=== PATIENT | female | born 1950 | race Caucasian/White ===

== ENCOUNTER 2018-06-11 22:29 | Inpatient (IN) ==
[2018-06-11] MEDS ORDERED: DUONEB 0.5 MG/3 MG NEB ONE (23:02)
[2018-06-11] MEDS ORDERED: SOLU-Medrol 125 MG VIAL IVP ONE (23:02)
[2018-06-11] MEDS ORDERED: DUONEB 0.5 MG/3 MG ONE (23:08)
--- NOTE | 2018-06-11 23:08 | DR.URIAD ---
HPI - Time Seen Time seen: 23:01 - PCP Primary Care Physician: MELO - Complaint Chief Complaint Doctors Comments: Patient states she has been having problems breathing for the past 2-3 weeks getting progressively worst. states she went to ther doctor last week and almost passed out and they are to do some more thest on her heart. states she has a concentrator at home and use 2 1/2 liters oxygen at home. States she has had a breathing treatment in the ambulance on the way to the hospital. She has been wheezing and having problems breathing and states she has been taking antibiotics for bad teeth for a while because she has not been strong enough to get her teeth pulled. She is still smoking at home about 1/2 pack daily as related by spouse. States she has a history or atrial fib and is taking aspirin. She denies problems with her hands or feet swelling. She denies nausea or vomiting. Chief Complaint:: [facility] DISPATCHED OUT TO PATIENT FOR DIFFICULTY BREATHING. EMS STATED THAT ON SCENE PATINET WAS 83% O2 ON ROOM DUONEB BREATHING TREATMENT GIVEN AND NASAL CANNULA APPLIED. PATIENT BROUGHT IN BY STRETCHER PATIENT ALERT AND ORINETED PATINET STATES THAT THE DIFFULCITY BREATHING HAS PROGRESSED THROUGH THE DAY. 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 negative: See HPI, Chest Pain, Edema, Palpitations, Syncope, Cyanosis, Skin Mottling, Other Gastrointestinal/Abdominal: No Symptoms Reported. negative: See HPI, Abdominal Pain, Constipation, Diarrhea, Nausea, Vomiting, Food Intolerance, Other Genitourinary: No Symptoms Reported Neurological: No Symptoms Reported Musculoskeletal: No Symptoms Reported Integumentary: No Symptoms Reported Hematologic/Lymphatic: No Symptoms Reported, See HPI Endocrine: No Symptoms Reported Psychiatric: No Symptoms Reported. negative: See HPI, Anxiety, Depression, Hallucinations, Excessive crying, Suicidal, Other PE - General Limitations: No Limitations General Appearance: Alert, In Distress (moderate) - Head Head Exam: Normal Inspection, Atraumatic, Normocephalic - Eyes Eye exam: Normal Appearance, PERRL, EOMI. negative: Scleral Icterus, Conjunctival Injection, Nystagmus, Miosis, Mydrasis, Periorbital Swelling, Periorbital Tenderness, Other - ENT ENT Exam: Normal Exam, Normal Oropharynx, Normal External Ear Exam, Mucous Membranes Moist, TM's Normal Bilaterally External Ear Exam: Normal External Inspection TM/Canal Exam: Bilateral Normal Nose Exam: Normal Nose Exam Nasal Speculum Exam: Bilateral Normal Mouth Exam: Normal Inspection. negative: Drooling, Trismus, Lip Swelling, Tongue Elevation, Tongue Swelling, Laceration, Other Throat Exam: Normal Inspection - Neck Neck Exam: Normal Inspection, Full ROM, Trachea Midline. negative: Tenderness, Meningismus, Lymphadenopathy, Thyromegaly, Other - Chest Chest Inspection: Normal Inspection, Symmetric Chest Wall Rise - Respiratory Respiratory Exam: Normal Lung Sounds Bilat, Prolonged Expiratory Phase Respiratory Exam: Bilateral Wheezing, Bilateral Decreased Breath Sounds, Left Rales - Cardiovascular Cardiovascular Exam: Regular Rate, Normal Rhythm, Normal Heart Sounds - Abdominal Exam Abdominal Exam: Normal Inspection, Normal Bowel Sounds, Soft, Tenderness (epigastric tenderness) Abdominal Tenderness: Epigastrium, Mild - Extremeties Extremities Exam: Normal Inspection, Full ROM, Normal Capillary Refill. negative: Tenderness, Edema, Joint Swelling, Calf Tenderness, Other - Back Back Exam: Normal Inspection, Full ROM. negative: Tenderness, (R) CVA Tenderness, (L) CVA Tenderness, Muscle Spasm, Paraspinal Tenderness, Vertebral Tenderness, Rashes, (R) Sciatic Notch Tenderness, (L) Sciatic Notch Tendern, (R) Straight Leg Raise, (L) Straight Leg Raise, Other - Neurologic Neurological Exam: Alert, Oriented X3, CN II-XII Intact, Reflexes Normal. negative: Normal Gait (gait not tested) - Psychiatric Psychiatric Exam: Normal Affect, Normal Mood. negative: Depressed, Agitated, Anxious, Flat Affect, Manic, Homicidal Ideation, Suicidal Ideation, Other - Skin Skin Exam: Warm, Dry, Intact, Normal Color - Vital Signs Vitals: Temperature 97.8 F Pulse Rate [Apical] 86 Pulse Rate 84 Respiratory Rate 27 Blood Pressure [Right Arm] 143/76 Blood Pressure 136/89 O2 Sat by Pulse Oximetry 95 Course - Consultation Called: 03:04 (Dr. Villaseñor contacted multiple times) - Education/Counseling Education/Counseling: Patient, Family Educated On: Treatment, Diagnosis ROR - Labs Reviewed Laboratory Results Reviewed?: Yes (All labs and x-ray results reviewed and disc ussed with patient) Result Diagrams: 06/11/18 22:49 06/11/18 22:49 - XRAY XRAY Interpreted by: Radiologist (Chest: Cardiomegaly with interstitial edema suggestin CHF) - EKG Rate: 104 Rhythm: Afib, PVCs Block: LBBB ST: Old, Ant, Infarct - Labs Reviewed Laboratory: WBC 14.6 X10^3/uL (3.6-10.0) H 06/11/18 22:49 RBC 4.08 X10^6/uL (3.5-5.4) 06/11/18 22:49 Hgb 12.4 g/dL (12.0-16.0) 06/11/18 22:49 Hct 38.3 % (36.0-47.0) 06/11/18 22:49 MCV 93.8 fL (80.0-100.0) 06/11/18 22:49 MCH 30.3 pg (27.0-34.0) 06/11/18 22:49 MCHC 32.3 g/dL (33.0-35.0) L 06/11/18 22:49 RDW 14.1 % (11.6-16.5) 06/11/18 22:49 Plt Count 391 X10^3/uL (150.0-450.0) 06/11/18 22:49 MPV 9.0 fL (7.4-11.0) 06/11/18 22:49 Neut % (Auto) 82.7 % (42.0-75.0) H 06/11/18 22:49 Lymph % (Auto) 13.2 % (21.0-51.0) L 06/11/18 22:49 [place] % (Auto) 3.7 % (0.0-13.0) 06/11/18 22:49 Eos % (Auto) 0.1 % (0.9-2.9) L 06/11/18 22:49 Baso % (Auto) 0.3 % (0.2-1.0) 06/11/18 22:49 Neut # (Auto) 12.1 x10^3/uL (2.2-4.8) H 06/11/18 22:49 Lymph # (Auto) 1.9 X10^3/uL (1.3-2.9) 06/11/18 22:49 [place] # (Auto) 0.5 x10^3/uL (0.3-0.8) 06/11/18 22:49 Eos # (Auto) 0.0 x10^3/uL (0.0-0.2) 06/11/18 22:49 Baso # (Auto) 0.0 X10^3/uL (0.0-0.1) 06/11/18 22:49 Absolute Nucleated RBC 0.0 /100WBC 06/11/18 22:49 INR Target Range - 06/11/18 22:49 INR 1.11 (0.8-1.3) 06/11/18 22:49 APTT 31.0 SECONDS (22.9-36.5) 06/11/18 22:49 PTT Comment - 06/11/18 22:49 Sodium 140 mmol/L (136-145) 06/11/18 22:49 Corrected Sodium 141 mmol/L (136-145) 06/11/18 22:49 Potassium 4.2 mmol/L (3.5-5.1) 06/11/18 22:49 Chloride 106 mmol/L (98-107) 06/11/18 22:49 Carbon Dioxide 19.8 mmol/L (21-32) L 06/11/18 22:49 BUN 16 mg/dL (7-18) 06/11/18 22:49 Creatinine 1.42 mg/dL (0.55-1.02) H 06/11/18 22:49 Est GFR (MDRD) Af Amer 48 (>60) L 06/11/18 22:49 Est GFR (MDRD) Non-Af 39 (>60) L 06/11/18 22:49 Glucose 129 mg/dL (65-99) H 06/11/18 22:49 Calcium 9.4 mg/dL (8.5-10.1) 06/11/18 22:49 Corrected Calcium TNP 06/11/18 22:49 Magnesium 1.9 mg/dL (1.7-2.9) 06/11/18 22:49 Total Bilirubin 0.40 mg/dL (0.2-1.0) 06/11/18 22:49 AST 12 Units/L (15-37) L 06/11/18 22:49 ALT 16 Units/L (12-78) 06/11/18 22:49 Alkaline Phosphatase 129 Units/L (46-116) H 06/11/18 22:49 Creatine Kinase 55 Units/L (26-192) 06/11/18 22:49 CK-MB (CK-2) 1.7 ng/mL (0-4.0) 06/11/18 22:49 CK/CKMB % Calc 3.1 % (<4) 06/11/18 22:49 Troponin I < 0.02 ng/mL (0-1.5) 06/11/18 22:49 B-Natriuretic Peptide 732 pg/mL (0-79) H* 06/11/18 22:49 Total Protein 7.6 g/dL (6.4-8.2) 06/11/18 22:49 Albumin 3.7 g/dL (3.4-5.0) 06/11/18 22:49 Globulin 3.9 g/dL (2.5-4.5) 06/11/18 22:49 Albumin/Globulin Ratio 0.9 Ratio (1.1-2.1) L 06/11/18 22:49 - Diagnosis Discharge Problem: Respiratory distress, COPD with acute exacerbation, Hyperglycemia, Hypoxemia Congestive heart failure (CHF) Qualifiers: Heart failure chronicity: acute on chronic Atrial fibrillation Qualifiers: Atrial fibrillation type: unspecified Qualified Code(s): I48.91 - Unspecified atrial fibrillation Pulmonary edema Qualifiers: Chronicity: acute Qualified Code(s): J81.0 - Acute pulmonary edema Chronic kidney disease (CKD) Qualifiers: Chronic kidney disease stage: stage 3 (moderate) Qualified Code(s): N18.3 - Chronic kidney disease, stage 3 (moderate) - Discharge Plan Disposition: ADMITTED INPATIENT Condition: Stable - Follow ups/Referrals Follow ups/Referrals: MARITA ALEJO [Primary Care Provider] - 3 days - Instructions
[2018-06-11] MEDS ORDERED: SOLU-Medrol 125 MG VIAL ONE (23:13)
[2018-06-11 23:17] LABS: BASOPHILS % (AUTO) 0.3 % (0.2-1.0); EOSINOPHILS % (AUTO) 0.1 % (0.9-2.9); HEMATOCRIT 38.3 % (36.0-47.0); HEMOGLOBIN 12.4 g/dL (12.0-16.0); LYMPHOCYTES # (AUTO) 1.9 X10^3/uL (1.3-2.9); LYMPHOCYTES % (AUTO) 13.2 % (21.0-51.0); MEAN CORPUSCULAR HEMOGLOBIN 30.3 pg (27.0-34.0); MEAN CORPUSCULAR HGB CONC 32.3 g/dL (33.0-35.0); MEAN CORPUSCULAR VOLUME 93.8 fL (80.0-100.0); MONOCYTES # (AUTO) 0.5 x10^3/uL (0.3-0.8); MONOCYTES % (AUTO) 3.7 % (0.0-13.0); NEUTROPHILS # (AUTO) 12.1 x10^3/uL (2.2-4.8); NEUTROPHILS % (AUTO) 82.7 % (42.0-75.0); PLATELET COUNT 391 X10^3/uL (150.0-450.0); RED BLOOD COUNT 4.08 X10^6/uL (3.5-5.4); RED CELL DISTRIBUTION WIDTH 14.1 % (11.6-16.5); WHITE BLOOD COUNT 14.6 X10^3/uL (3.6-10.0)
[2018-06-11 23:28] LABS: BLOOD UREA NITROGEN 16 mg/dL (7-18); CALCIUM 9.4 mg/dL (8.5-10.1); CARBON DIOXIDE 19.8 mmol/L (21-32); CHLORIDE 106 mmol/L (98-107); COR NA(FOR HYPERGLY) 141 mmol/L (136-145); CREATININE 1.42 mg/dL (0.55-1.02); SODIUM 140 mmol/L (136-145); TROPONIN I < 0.02 ng/mL (0-1.5); eGFR NON BLACK RACES 39 (>60)
[2018-06-11 23:32] LABS: ALANINE AMINOTRANSFERASE 16 Units/L (12-78); ALBUMIN 3.7 g/dL (3.4-5.0); ALKALINE PHOSPHATASE 129 Units/L (46-116); ASPARTATE AMINO TRANSFERASE 12 Units/L (15-37); CKMB % 3.1 % (<4); CREATINE KINASE 55 Units/L (26-192); CREATINE KINASE MB 1.7 ng/mL (0-4.0); MAGNESIUM 1.9 mg/dL (1.7-2.9); TOTAL PROTEIN 7.6 g/dL (6.4-8.2)
[2018-06-11 23:39] LABS: B-TYPE NATRIURETIC PEPTIDE 732 pg/mL (0-79)
[2018-06-12] MEDS ORDERED: LASIX IVP STA (00:55)
[2018-06-12] MEDS ORDERED: LASIX ONE (01:03)
--- NOTE | 2018-06-12 01:03 | RAD ---
Chest, 1 view Indication: Chest pain, difficulty breathing Comparison: 11/28/2011 Findings: Cardiac silhouette is mildly enlarged. There are basilar predominant interstitial opacities of both lungs, with Shavon B-lines. No significant pleural effusion. Chronic changes of COPD are noted. Impression: Cardiomegaly with interstitial edema suggesting CHF. COPD. Reported By:
[2018-06-12] MEDS ORDERED: ROCEPHIN VIAL 1 GRAM IVP ONE (02:57)
[2018-06-12] MEDS ORDERED: HumuLIN R SC PRN (03:12)
[2018-06-12] MEDS ORDERED: ROCEPHIN VIAL 1 GRAM ONE (03:21)
[2018-06-12 04:08] LABS: CKMB % 3.3 % (<4); CREATINE KINASE MB 1.7 ng/mL (0-4.0); TROPONIN I 0.02 ng/mL (0-1.5)
[2018-06-12 04:26] LABS: CHOL/HDL RATIO 3.7 (0.0-5.0)
[2018-06-12 04:27] LABS: ALANINE AMINOTRANSFERASE 13 Units/L (12-78); ALBUMIN 3.4 g/dL (3.4-5.0); ALKALINE PHOSPHATASE 121 Units/L (46-116); ASPARTATE AMINO TRANSFERASE 10 Units/L (15-37); BLOOD UREA NITROGEN 17 mg/dL (7-18); CARBON DIOXIDE 19.2 mmol/L (21-32); CHLORIDE 107 mmol/L (98-107); COR NA(FOR HYPERGLY) 143 mmol/L (136-145); CREATININE 1.28 mg/dL (0.55-1.02); SODIUM 142 mmol/L (136-145); TOTAL PROTEIN 6.5 g/dL (6.4-8.2); eGFR NON BLACK RACES 44 (>60)
[2018-06-12 04:43] LABS: BASOPHILS % (AUTO) 0.3 % (0.2-1.0); HEMATOCRIT 35.3 % (36.0-47.0); HEMOGLOBIN 11.5 g/dL (12.0-16.0); LYMPHOCYTES # (AUTO) 0.6 X10^3/uL (1.3-2.9); LYMPHOCYTES % (AUTO) 6.5 % (21.0-51.0); MEAN CORPUSCULAR HEMOGLOBIN 30.3 pg (27.0-34.0); MEAN CORPUSCULAR HGB CONC 32.5 g/dL (33.0-35.0); MEAN CORPUSCULAR VOLUME 93.2 fL (80.0-100.0); MEAN PLATELET VOLUME 9.3 fL (7.4-11.0); MONOCYTES # (AUTO) 0.1 x10^3/uL (0.3-0.8); MONOCYTES % (AUTO) 1.5 % (0.0-13.0); NEUTROPHILS # (AUTO) 8.8 x10^3/uL (2.2-4.8); NEUTROPHILS % (AUTO) 91.7 % (42.0-75.0); PLATELET COUNT 305 X10^3/uL (150.0-450.0); RED BLOOD COUNT 3.79 X10^6/uL (3.5-5.4); RED CELL DISTRIBUTION WIDTH 13.9 % (11.6-16.5); WHITE BLOOD COUNT 9.6 X10^3/uL (3.6-10.0)
[2018-06-12 04:52] VITALS: BMI 26.0
[2018-06-12 04:54] LABS: BAND NEUTROPHILS % 5 % (0-10); PLATELET MORPHOLOGY COMMENT NORMAL (NORMAL)
[2018-06-12] MEDS ORDERED: DUONEB 0.5 MG/3 MG NEB SCH (06:00)
[2018-06-12] MEDS: PRAVACHOL PO SCH ×2 (07:14→21:11)
[2018-06-12] MEDS: COZAAR PO SCH (08:27)
[2018-06-12] MEDS: LOPRESSOR TAB 25 MG PO SCH ×3 (08:27→21:00)
[2018-06-12] MEDS: ALDACTONE TAB 25 MG PO SCH (08:27)
[2018-06-12] MEDS: LASIX IVP SCH ×2 (08:27→21:10)
[2018-06-12] MEDS ORDERED: TUSSIONEX PENNKINETIC SUSP PO PRN (08:39)
[2018-06-12] MEDS ORDERED: LANOXIN INJ IVP ONE (08:42)
[2018-06-12] MEDS ORDERED: LANOXIN INJ IVP SCH (09:00)
[2018-06-12] MEDS ORDERED: NS 100 ML IV 100 ML ONE (09:21)
[2018-06-12] MEDS ORDERED: CARDIZEM INJ 50 MG VIAL ONE (09:23)
[2018-06-12] MEDS ORDERED: CARDIZEM INJ 125 MG VIAL ONE (09:23)
[2018-06-12] MEDS ORDERED: PULMICORT NEB TX 0.5 MG ONE (09:27)
[2018-06-12] MEDS: BROVANA IN SCH ×2 (09:35→20:34)
[2018-06-12] MEDS: PULMICORT NEB TX 0.5 MG NEB SCH ×2 (09:37→20:25)
[2018-06-12] MEDS ORDERED: NS 1000 ML 1,000 ML ONE ×2 (09:44→09:48)
[2018-06-12 10:00] LABS: CKMB % 4.9 % (<4); CREATINE KINASE 47 Units/L (26-192); CREATINE KINASE MB 2.3 ng/mL (0-4.0); TROPONIN I < 0.02 ng/mL (0-1.5)
[2018-06-12] MEDS: CARDIZEM INJ 125 MG VIAL 125 MG in NS 100 ML IV 100 ML IV PRN ×2 (10:02→15:49)
[2018-06-12 10:29] LABS: BILIRUBIN,URINE NEGATIVE (NEGATIVE); BLOOD/HEMOGLOBIN,URINE NEGATIVE (NEGATIVE); GLUCOSE, URINE NEGATIVE (NEGATIVE); KETONES,URINE NEGATIVE (NEGATIVE); LEUKOCYTE ESTERASE ,URINE NEGATIVE (NEGATIVE); NITRITES,URINE NEGATIVE (NEGATIVE); PROTEIN,URINE NEGATIVE (NEGATIVE); UROBILINOGEN,URINE NORMAL (NORMAL)
[2018-06-12 10:41] LABS: APPEARANCE,URINE CLEAR (CLEAR); COLOR,URINE YELLOW (YELLOW)
[2018-06-12] MEDS: SOLU-Medrol 40 MG VIAL IVP SCH ×3 (11:30→21:44)
[2018-06-12] MEDS: TESSALON PERLES PO SCH ×3 (11:35→21:44)
[2018-06-12] MEDS: MUCINEX DM PO SCH ×2 (11:35→21:11)
[2018-06-12] MEDS: XOPENEX 1.25 MG/3 ML NEBULE NEB SCH ×2 (11:50→17:24)
[2018-06-12 16:00] LABS: CKMB % 3.6 % (<4); CREATINE KINASE 42 Units/L (26-192); CREATINE KINASE MB 1.5 ng/mL (0-4.0); TROPONIN I < 0.02 ng/mL (0-1.5)
[2018-06-12] MEDS ORDERED: LOPRESSOR INJ 5 MG AMP ONE ×4 (16:56→20:01)
[2018-06-12] MEDS: LOPRESSOR INJ 5 MG AMP IVP ONE ×4 (16:59→20:05)
[2018-06-12] MEDS: LOVENOX INJ 60 MG SYR SC SCH (20:10)
--- NOTE | 2018-06-12 20:38 | DR.H&P ---
H&P - History & Physical for Day of: H&P Date: 06/12/18 - Chief Complaint Chief Complaint: DIFFICULTY BREATHING - History of Present Illness History of Present Illness: IS A 67 YEAR OLD PATIENT OF WHO PRESENTED TO THE ER WITH COMPLAINTS OF DIFFICULTY BREATHING. WHEN EMS ARRIVED AND ASSESSED PATIENT, OXYGEN SATURATIONS WERE NOTED TO BE 83% ON ROOM AIR. DUONEB AND OXYGEN WERE APPLIED. SHE REPORTS USE OF AN OXYGEN CONCENTRATOR AT HOME. SHE STATED THAT SHE HAS BEEN WHEEZING FOR THE PAST TWO-THREE WEEKS. SHE REPORTED TAKING ANTIBIOTICS FOR THE PAST WEEK. MEDICAL HISTORY INCLUDES ATRIAL FIBRILLATION, COPD, CAD, DYSLIPIDEMIA, GERD, AND HTN. ON ARRIVAL, VITALS WERE 97.8-100-22-92%-136/89. LABS WERE OBTAINED. ABNORMAL LAB VALUES INCLUDE THE FOLLOWING: WBC 14.6, CARBON DIOXIDE 19.8, CREATININE 1.42, GLUCOSE 129, AST 12, ALK PHOS 129, BNP 732. A CHEST XRAY WAS OBTAINED AND REVEALED: Cardiomegaly with interstitial edema suggesting CHF. COPD. EKG REVEALED: ATRIAL FIBRILLATION WITH HR 104. SHE WAS GIVEN LOPRESSOR 5MG IV X 1, ROCEPHIN 1G IV X 1, LASIX 20MG IV X 1, SOLU-MEDROL 125MG IV X 1, AND A DUONEB IN THE ER. SHE REPORTED SLIGHT IMPROVEMENT. SHE WAS ADMITTED FOR FURTHER EVALUATION AND TREATMENT OF CONGESTIVE HEART FAILURE, COPD EXACERBATION, AND ATRIAL FIBRILLATION. ON MORNING ROUNDS, SHE WAS NOTED TO BE TACHYCARDIC WITH HR IN THE 130S. VERTICAL LATHE OPERATOR REVEALED ATRIAL FIBRILLATION. TODAY, WE WILL ADMINISTER DIGOXIN 500MCG IV X 1 DOSE, START SOLU-MEDROL 80MG IV Q8H, PULMICORT AND XOPENEX NEB TX, MUCINEX DM, TUSSIONEX, TESSALON PERLES, AND WE WILL START HER ON A CARDIZEM DRIP. OTHERWISE, WE PLAN TO FOLLOW UP WITH AM LABS AND CONTINUE TO MONITOR. - Past Medical History Past Medical History: Anxiety, Arthritis, COPD, Coronary Artery Disease, Depression, Dyslipidemia, GERD, Hypertension Additional Medical History: Hx Atrial Fibrillation, Fibromyalgia - Past Surgical History Surgical History: Hysterectomy - Family History Family Medical History: Cancer, [place], Hypertension - Social History Does patient currently use any type of tobacco product: Yes Have you used tobacco products in the last 12 months: Yes Type of Tobacco Use: Cigarettes How many years tobacco product used: 30 Does any household member use tobacco: Yes Alcohol Use: None Drug Use: None - Medications Home Medications: No Known Drug Allergies Allergy (Verified 06/11/18 22:30) CONTINUE taking the following medications albuterol sulfate [ProAir HFA] 1 puff INHALATION Q4-6H PRN 06/11/18 [History] alprazolam 0.25 mg PO BID PRN 06/11/18 [History] aspirin 81 mg PO QDAY 06/11/18 [History] diphenoxylate-atropine [Lomotil] 1 tab PO Q6H PRN 06/11/18 [History] gabapentin 300 mg PO QHS 06/11/18 [History] losartan 50 mg PO DAILY 06/11/18 [History] metoprolol tartrate 25 mg PO BID 06/11/18 [History] nifedipine 60 mg PO DAILY 06/11/18 [History] potassium chloride 10 meq PO DAILY 06/11/18 [History] pravastatin 40 mg PO QHS 06/11/18 [History] ropinirole 0.5 mg PO BID 06/11/18 [History] spironolactone 25 mg PO DAILY 06/11/18 [History] topiramate 100 mg PO BID 06/11/18 [History] tramadol 50 mg PO TID PRN 06/11/18 [History] venlafaxine 75 mg PO BID 06/11/18 [History] - Review of Systems Constitutional: No Symptoms Reported Eyes: No Symptoms Reported ENT: No Symptoms Reported Respiratory: See HPI, Cough, Shortness of Breath, SOB with Excertion, Wheezing Cardiovascular: No Symptoms Reported Gastrointestinal: No Symptoms Reported Genitourinary: No Symptoms Reported Musculoskeletal: No Symptoms Reported Skin: No Symptoms Reported Neurological: No Symptoms Reported - Physical Exam Vital Signs: Temperature 98.1 F Pulse Rate [Apical] 86 Pulse Rate 120 Respiratory Rate 23 Blood Pressure [Right Arm] 143/76 Blood Pressure 133/60 O2 Sat by Pulse Oximetry 95 Oriented: Normal Eyes: Normal Ear: Normal Nose: Normal Throat: Normal Respiratory: Wheezes Throughout Cardiovascular: Tachycardia, Irregular : Normal Auscultation: Bowel Sounds: Normal Palpation: Normal Tenderness: Normal Skin: Normal Musculoskeletal: Normal Psychiatric: Normal Mood Description: Calm Affect: Normal Speech Pattern: Clear - Assessment/Plan (1) COPD with acute exacerbation Status: Acute Plan: SOLU-MEDROL 80MG IV Q8H, RESPIRATORY TX, SUPPLEMENTAL OXYGEN, CONTINUE TO MONITOR (2) Congestive heart failure (CHF) Qualifiers: Heart failure chronicity: acute on chronic Status: Acute Plan: LASIX 20MG IV BID, RESPIRATORY TX, SUPPLEMENTAL OXYGEN, CONTINUE HOME MEDS, CONTINUE TO MONITOR (3) Atrial fibrillation Qualifiers: Atrial fibrillation type: unspecified Qualified Code(s): I48.91 - Unspecified atrial fibrillation Status: Acute Plan: DIGOXIN 500MCG IV X 1 DOSE, CARDIZEM DRIP, CONTINUE TO MONITOR (4) Respiratory distress Status: Acute - Allergies Allergies/Adverse Reactions: Allergies Allergy/AdvReac Type Severity Reaction Status Date / Time No Known Drug Allergies Allergy Verified 06/11/18 22:30
[2018-06-13] MEDS: CARDIZEM INJ 125 MG VIAL 125 MG in NS 100 ML IV 100 ML IV PRN (00:45)
[2018-06-13] MEDS: XOPENEX 1.25 MG/3 ML NEBULE NEB SCH ×3 (00:59→12:05)
[2018-06-13 05:17] LABS: BASOPHILS % (AUTO) 0.2 % (0.2-1.0); HEMATOCRIT 36.1 % (36.0-47.0); HEMOGLOBIN 11.6 g/dL (12.0-16.0); LYMPHOCYTES # (AUTO) 0.8 X10^3/uL (1.3-2.9); LYMPHOCYTES % (AUTO) 4.8 % (21.0-51.0); MEAN CORPUSCULAR HGB CONC 32.2 g/dL (33.0-35.0); MEAN CORPUSCULAR VOLUME 92.9 fL (80.0-100.0); MEAN PLATELET VOLUME 9.3 fL (7.4-11.0); MONOCYTES # (AUTO) 0.2 x10^3/uL (0.3-0.8); MONOCYTES % (AUTO) 1.3 % (0.0-13.0); NEUTROPHILS # (AUTO) 16.4 x10^3/uL (2.2-4.8); NEUTROPHILS % (AUTO) 93.7 % (42.0-75.0); PLATELET COUNT 346 X10^3/uL (150.0-450.0); RED BLOOD COUNT 3.88 X10^6/uL (3.5-5.4); RED CELL DISTRIBUTION WIDTH 14.1 % (11.6-16.5); WHITE BLOOD COUNT 17.5 X10^3/uL (3.6-10.0)
[2018-06-13 05:35] LABS: ALBUMIN 3.3 g/dL (3.4-5.0); CARBON DIOXIDE 22.1 mmol/L (21-32); COR CA(FOR HYPOALB) 9.6 mg/dL (8.5-10.1); CREATININE 1.34 mg/dL (0.55-1.02); TOTAL PROTEIN 6.8 g/dL (6.4-8.2)
[2018-06-13] MEDS: SOLU-Medrol 40 MG VIAL IVP SCH (05:49)
[2018-06-13] MEDS: TESSALON PERLES PO SCH (05:49)
--- NOTE | 2018-06-13 06:11 | RAD ---
HISTORY: Chest pain, difficulty breathing Study: Single view chest Comparison: 06/11/2018 Findings: There is right basilar opacity. Lungs are mildly hyperinflated with increased interstitial markings. The cardiac and mediastinal contours are within normal limits. The soft tissues are unremarkable. IMPRESSION: 1. Right basilar opacity, possibly representing pneumonia in the appropriate clinical setting. Continued follow-up recommended. Reported By:
[2018-06-13 06:18] LABS: BAND NEUTROPHILS % 3 % (0-10); PLATELET MORPHOLOGY COMMENT NORMAL (NORMAL)
[2018-06-13] MEDS: MUCINEX DM PO SCH (08:37)
[2018-06-13] MEDS: LOVENOX INJ 60 MG SYR SC SCH ×2 (08:37→10:21)
[2018-06-13] MEDS: COZAAR PO SCH (08:37)
[2018-06-13] MEDS: LASIX IVP SCH (08:37)
[2018-06-13] MEDS: ALDACTONE TAB 25 MG PO SCH (08:37)
[2018-06-13] MEDS: LOPRESSOR TAB 25 MG PO SCH (08:37)
[2018-06-13 09:00] LABS: ABG BASE EXCESS -2.9 mmol/L (-2.0-2.0); ABG HCO3 18.7 mmol/L (22-26)
[2018-06-13] MEDS ORDERED: LEVAQUIN PREMIX IV 750 MG 750 MG/150 ML BAG IV SCH (09:00)
[2018-06-13] MEDS: BROVANA IN SCH (09:27)
[2018-06-13] MEDS: PULMICORT NEB TX 0.5 MG NEB SCH (09:36)
[2018-06-13] MEDS ORDERED: SALINE 3% 15 ML NEB TX NEB ONE (09:42)
--- NOTE | 2018-06-13 10:26 | CT ---
HISTORY: Altered mental status Study: CT head without contrast Comparison: None Technique: Axial noncontrast images with coronal and sagittal reformats. Dose reduction procedures were used with mA/kv adjusted for body size. Findings: The ventricles are normal in size shape and position. There are no areas of abnormal attenuation to suggest recent or remote CVA, hemorrhage, mass lesion, or extra-axial fluid collection. Mild cortical atrophy is present. The visualized sinuses are clear. The calvarium is intact. IMPRESSION: No acute intracranial abnormality Mild cortical atrophy Reported By:
[2018-06-13] MEDS ORDERED: LOPRESSOR INJ 5 MG AMP IVP ONE (10:55)
[2018-06-13] MEDS ORDERED: PHARMACY CONSULT - DOSE _____ XX SCH (11:00)
[2018-06-13 12:13] VITALS: BP 165/77
== END 2018-06-13 12:08 | disposition home or self-care (01) | DRG 190 ==
LOC: ER 22:29 → ICU 06-12 03:05
PROVIDERS: ADMIT Internal Medicine; ATTEND Internal Medicine
DX: Z79.01 Long term (current) use of anticoagulants; I48.91 Unspecified atrial fibrillation; I50.9 Heart failure, unspecified; Z72.0 Tobacco use; E78.2 Mixed hyperlipidemia; R06.03 Acute respiratory distress; J44.1 Chronic obstructive pulmonary disease with (acute) exacerbation; K21.9 Gastro-esophageal reflux disease without esophagitis; I11.0 Hypertensive heart disease with heart failure; N18.3 Chronic kidney disease, stage 3 (moderate); I25.10 Atherosclerotic heart disease of native coronary artery without angina pectoris; R94.31 Abnormal electrocardiogram [ECG] [EKG]; F41.8 Other specified anxiety disorders; J81.0 Acute pulmonary edema; Z99.81 Dependence on supplemental oxygen
CPT/HCPCS: 36415; 36600; 70450; 71010; 71045; 80053; 80061; 81003; 82550; 82553; 82803; 83735; 83880; 84484; 85025; 85610; 85730; 87040; 87070; 87205; 92523; 93005; 94640; 96365; 96374; 96375; 99285; A4216; A4222; J0696; J1160; J1650; J1815; J1940; J1956; J2920; J2930; J3490; J7030; J7050; J7620; J7626